=== PATIENT | female | born 1960 | race African-American/Black ===

== ENCOUNTER → 2019-08-16 | Day surgery (SDC) | payer OTHER ==
[~2019-08-16] MED LIST: ALLOPURINOL300 MG PO; ANASTROZOLE1 MG PO; ATORVASTATIN CA10 MG PO; BASAGLAR K100 UNIT/1 SC; COLCRYS0.6 MG PO; DUPIXENT300 MG/2 M INJ; ELIQUIS5 MG PO; FENTANYL CITRATE/PF 100MCG/2 ML INJ ONE; GABAPENTIN300 MG PO; HYDRALAZINE HCL25 MG PO; LOSARTAN-HCTZ1 EAC2 PO; METFORMIN HCL500 MG PO; MIDAZOLAM HCL 2 MG/2 ML VIAL ONE; NOVOLOG100 UNIT/1 SC; PROPOFOL IV EMULSION 10 MG/ML 50 ML VIAL ONE; SYNTHROID125 MCG PO
--- OUTSIDE RECORDS SUMMARY | 2019-08-16 11:21 | XMS REPORT | Summary of Care ---
Author Author DARREN AMOR M.D. Organization Unknown Address Unknown Phone Unavailable Care Team Providers Care Test Clerk Name Role Phone DARREN AMOR M.D. Unavailable Unavailable Unavailable Unavailable Functional Status Name Dates Details Functional status health issues are not documented Status: Name Dates Details Cognitive status health issues are not documented Status: Problems Name Dates Details Knee pain, bilateral (719.46, M25.561) Status: Active Follow up (V67.9, Z09) Status: Active Lumbar pain (724.2, M54.5) Status: Active DJD (degenerative joint disease), lumbar (721.3, M47.816) Status: Active Primary osteoarthritis of both knees (715.16, M17.0) Status: Active Medications Name Dates Details Pennsaid 2 % Transdermal Solution APPLY 2 PUMPS TOPICALLY TO AFFECTED AREA(S) 2 TIMES DAILY Quantity: 112 DARREN AMOR M.D. Start : 23-Jul-2017 Active Meloxicam 7.5 MG Oral Tablet TAKE 1 TABLET BY MOUTH DAILY TAKE WITH FOOD * Quantity: 30 Refills: 0 DARREN AMOR M.D. * Start : 01-Feb-2018 Active Diclofenac Sodium 1 % Transdermal Gel APPLY TO LOWER EXTREMITIES, 4 GM OF GEL TO AFFECTED AREA 4 TIMES DAILY. DO NOT APPLY MORE THAN 16 GM DAILY TO ANY ONE AFFECTED JOINT. * Quantity: 5 Refills: 0 DARREN AMOR M.D. Start : 04-Sep-2017 Active 100 GM Tube Meloxicam 7.5 MG Oral Tablet TAKE 1 TABLET BY MOUTH DAILY TAKE WITH FOOD * Quantity: 30 Refills: 0 DARREN AMOR M.D. Start : 23-Oct-2017 Active Meloxicam 15 MG Oral Tablet TAKE ONE TABLET BY MOUTH DAILY WITH A MEAL. * Quantity: 30 Refills: 3 DARREN AMOR M.D. Start : 17-Feb-2018 Active Allergies and Adverse Reactions Name Dates Details Bactrim DS TABS (Allergy) Status: Active Iodine ANA LAURA (Allergy) Status: Active Naproxen Comfort Pac KIT (Allergy) Status: Active Past Medical History Name Dates Details History of Depressive disorder (311, F32.9) Status: Resolved History of Essential hypertension, benign (401.1, I10) Status: Resolved History of heartburn (V12.79, Z87.898) Status: Resolved History of hypothyroidism (V12.29, Z86.39) Status: Resolved History of Pure hypercholesterolemia (272.0, E78.00) Status: Resolved History of sleep apnea (V13.89, Z86.69) Status: Resolved Procedures Procedure Dates Details Procedures not documented Immunization Name Dates Details Immunizations not documented Social History Name Dates Details Unknown if ever smoked Vital Signs Date Test Result Details No Known Vitals to report Results Date Description Value Details Results not documented Plan of Care Name Dates Details Planned Observations Planned Goals not documented Planned Encounters Appointment; DARREN AMOR M.D. On: 09-Jul-2018 11:30 Interventions Provided Plan* Completed at Today's Appointment: * Injection * Patient Education/Instructions: * Patient Education Provided * Reassurance * Counseling Provided. * NSAIDS and ICE application for continued pain and swelling. * Orders: * Medications: * Medications (prescribed or recommended at this visit): * - Mobic 15 mg 1 tab PO QD with meals. * Follow Up: * Return to the clinic in 6 weeks or as needed. * Weight loss Instructions Name Dates Details Instructions not documented Encounters Appointment; DARREN AMOR M.D. Encounter Diagnosis: Problem not documented On: 19-Feb-2017 13:45 Appointment; DARREN AMOR M.D. Encounter Diagnosis: Problem not documented On: 20-Apr-2017 9:45 Appointment; DARREN AMOR M.D. Encounter Diagnosis: Problem not documented On: 22-Jun-2017 9:00 Appointment; DARREN AMOR M.D. Encounter Diagnosis: Problem not documented On: 01-Jul-2017 9:00 Appointment; DARREN AMOR M.D. Encounter Diagnosis: Problem not documented On: 06-Jul-2017 9:15 Appointment; DARREN AMOR M.D. Encounter Diagnosis: Problem not documented On: 04-Sep-2017 11:30 Appointment; DARREN AMOR M.D. Encounter Diagnosis: Problem not documented On: 23-Oct-2017 11:30 Appointment; DARREN AMOR M.D. Encounter Diagnosis: Problem not documented On: 17-Feb-2018 13:30 Appointment; DARREN AMOR M.D. Encounter Diagnosis: Problem not documented On: 21-May-2018 13:30
--- OUTSIDE RECORDS SUMMARY | 2019-08-16 11:21 | XMS REPORT ---
Author Author [facility] Address Unknown Phone Unavailable Care Team Providers Care Branch Banker Name Role Phone CARLIE MACHADO Unavailable Unavailable MAMIE GUERRERO Unavailable Unavailable RALPH HARRISON Unavailable Unavailable Problems This patient has no known problems. Allergies, Adverse Reactions, Alerts This patient has no known allergies or adverse reactions. Medications This patient has no known medications. Encounters Start Date/Time End Date/Time Encounter Type Admission Type Attending [facility] Facility Care Department Encounter ID 2019-06-21 17:58:00 Inpatient [facility] [id number] 2019-07-07 00:12:00 2019-07-07 00:12:00 Emergency E [facility] [id number] 2019-02-14 07:23:00 2019-02-14 07:23:00 [id number] 2019-01-14 07:15:00 2019-01-14 07:15:00 [id number] 2017-02-28 20:00:00 2017-02-28 23:59:00 Outpatient [facility] [id number] 2017-02-07 20:00:00 2017-02-07 23:59:00 Outpatient [facility] [id number] Results Test Description Test Time Test Comments Text Results Atomic Results Result Comments HGB/HCT (H&H) - STAT LAB 2017-12-31 14:49:00 HEMOGLOBIN (BEAKER) (test kpia=913) 13.0 g/dL 12.0-15.0 HEMATOCRIT (BEAKER) (test uhrf=121) 38.0 % 36.0-45.0 BLOOD GAS, [id number] 14:44:00* Test Item Value Reference Range Comments PH ARTERIAL (BEAKER) (test rgms=011) 7.47 7.35-7.45 PCO2 ARTERIAL (BEAKER) (test vqeh=661) 41 mmHg 35-45 PO2 ARTERIAL (BEAKER) (test qdbp=233) 93 mmHg 80-90 O2 SATURATION ARTERIAL (BEAKER) (test zrii=934) 97.5 % 96.0-97.0 HCO3 ARTERIAL (BEAKER) (test yydb=920) 29 mmol/L 21-29 BASE EXCESS ARTERIAL (BEAKER) (test zhvh=106) 5.2 mmol/L -2.0-3.0 PATIENT TEMPERATURE (BEAKER) (test kgkc=1556) 37.0 C FIO2 (BEAKER) (test zllf=1121) 21.0 % POCT-GLUCOSE [id number] 12:24:00* Test Item Value Reference Range Comments POC-GLUCOSE METER (BEAKER) (test ubsz=0153) 282 mg/dL 70-110 TESTED AT [place] [id number] [facility] [address] POCT-GLUCOSE [id number] 08:12:00* Test Item Value Reference Range Comments POC-GLUCOSE METER (BEAKER) (test vicq=8040) 229 mg/dL 70-110 TESTED AT [place] [id number] [facility] [address] [id number] 06:10:00* Test Item Value Reference Range Comments FERRITIN (BEAKER) (test ntdm=629) 47 ng/mL 5-275 TSH/FREE T4 IF [id number] 06:10:00* Test Item Value Reference Range Comments THYROID STIMULATING HORMONE (BEAKER) (test bpab=824) 3.52 uIU/mL 0.35-4.94 IRON, TIBC, % SAT. (WITHOUT FERRITIN)2017-08-21 05:52:00* Test Item Value Reference Range Comments IRON (BEAKER) (test thwq=990) 60 ug/dL 40-160 TOTAL IRON BINDING CAPACITY (BEAKER) (test hggb=840) 285 ug/dL 250-450 IRON % SATURATION (2) (BEAKER) (test hzfn=4285) 21 % 20-55 BASIC METABOLIC [id number] 05:22:00* Test Item Value Reference Range Comments SODIUM (BEAKER) (test ttuc=787) 136 meq/L 136-145 POTASSIUM (BEAKER) (test uqlf=518) 4.1 meq/L 3.5-5.1 CHLORIDE (BEAKER) (test eapf=442) 102 meq/L 98-107 CO2 (BEAKER) (test kvwo=279) 26 meq/L 22-29 BLOOD UREA NITROGEN (BEAKER) (test dbee=575) 10 mg/dL 7-21 CREATININE (BEAKER) (test kwoi=867) 0.97 mg/dL 0.57-1.25 GLUCOSE RANDOM (BEAKER) (test zuqw=433) 154 mg/dL 70-105 CALCIUM (BEAKER) (test jsuv=835) 8.7 mg/dL 8.4-10.2 EGFR (BEAKER) (test mvtl=4882) 71 mL/min/1.73 sq m ESTIMATED GFR IS NOT ACCURATE CREATININE CLEARANCE IN PREDICTING GLOMERULAR FILTRATION RATE. ESTIMATED GFR IS NOT APPLICABLE FOR DIALYSIS PATIENTS. CBC (HEMOGRAM ONLY)2017-08-21 04:28:00* Test Item Value Reference Range Comments WHITE BLOOD CELL COUNT (BEAKER) (test rcvs=117) 9.2 K/ L 3.5-10.5 RED BLOOD CELL COUNT (BEAKER) (test brcj=961) 3.33 M/ L 3.93-5.22 HEMOGLOBIN (BEAKER) (test xcch=736) 10.1 GM/DL 11.2-15.7 HEMATOCRIT (BEAKER) (test zofa=838) 31.3 % 34.1-44.9 MEAN CORPUSCULAR VOLUME (BEAKER) (test rmon=910) 94.0 fL 79.4-94.8 MEAN CORPUSCULAR HEMOGLOBIN (BEAKER) (test tawx=958) 30.3 pg 25.6-32.2 MEAN CORPUSCULAR HEMOGLOBIN CONC (BEAKER) (test iboh=447) 32.3 GM/DL 32.2-35.5 RED CELL DISTRIBUTION WIDTH (BEAKER) (test oxpj=127) 15.1 % 11.7-14.4 PLATELET COUNT (BEAKER) (test ygjk=867) 287 K/CU MM 150-450 MEAN PLATELET VOLUME (BEAKER) (test jtnd=181) 10.3 fL 9.4-12.3 NUCLEATED RED BLOOD CELLS (BEAKER) (test etmy=445) 0 /100 WBC 0-0 BASIC METABOLIC [id number] 19:35:00* Test Item Value Reference Range Comments SODIUM (BEAKER) (test tuip=961) 136 meq/L 136-145 POTASSIUM (BEAKER) (test rtuz=542) 4.0 meq/L 3.5-5.1 CHLORIDE (BEAKER) (test kqng=736) 101 meq/L 98-107 CO2 (BEAKER) (test gmtb=487) 25 meq/L 22-29 BLOOD UREA NITROGEN (BEAKER) (test jgjz=835) 12 mg/dL 7-21 CREATININE (BEAKER) (test vujv=234) 0.96 mg/dL 0.57-1.25 GLUCOSE RANDOM (BEAKER) (test wfil=975) 186 mg/dL 70-105 CALCIUM (BEAKER) (test bojm=666) 8.6 mg/dL 8.4-10.2 EGFR (BEAKER) (test qqqj=3868) 72 mL/min/1.73 sq m ESTIMATED GFR IS NOT ACCURATE CREATININE CLEARANCE IN PREDICTING GLOMERULAR FILTRATION RATE. ESTIMATED GFR IS NOT APPLICABLE FOR DIALYSIS PATIENTS. POCT-GLUCOSE [id number] 18:20:00* Test Item Value Reference Range Comments POC-GLUCOSE METER (BEAKER) (test ibsk=6233) 217 mg/dL 70-110 TESTED AT [place] [address] BASIC METABOLIC [id number] 11:47:00* Test Item Value Reference Range Comments SODIUM (BEAKER) (test azka=488) 135 meq/L 136-145 POTASSIUM (BEAKER) (test gern=999) 4.0 meq/L 3.5-5.1 CHLORIDE (BEAKER) (test rchi=344) 99 meq/L 98-107 CO2 (BEAKER) (test rdij=184) 26 meq/L 22-29 BLOOD UREA NITROGEN (BEAKER) (test sugn=963) 15 mg/dL 7-21 CREATININE (BEAKER) (test jjdl=996) 1.07 mg/dL 0.57-1.25 GLUCOSE RANDOM (BEAKER) (test qbrc=236) 205 mg/dL 70-105 CALCIUM (BEAKER) (test vnvm=701) 9.3 mg/dL 8.4-10.2 EGFR (BEAKER) (test onrd=6795) 64 mL/min/1.73 sq m ESTIMATED GFR IS NOT ACCURATE CREATININE CLEARANCE IN PREDICTING GLOMERULAR FILTRATION RATE. ESTIMATED GFR IS NOT APPLICABLE FOR DIALYSIS PATIENTS. CBC W/PLT COUNT & AUTO [id number] 11:30:00* Test Item Value Reference Range Comments WHITE BLOOD CELL COUNT (BEAKER) (test emei=772) 8.4 K/ L 3.5-10.5 RED BLOOD CELL COUNT (BEAKER) (test gqrl=137) 3.52 M/ L 3.93-5.22 HEMOGLOBIN (BEAKER) (test dquh=781) 10.7 GM/DL 11.2-15.7 HEMATOCRIT (BEAKER) (test okgk=550) 32.8 % 34.1-44.9 MEAN CORPUSCULAR VOLUME (BEAKER) (test ncnr=127) 93.2 fL 79.4-94.8 MEAN CORPUSCULAR HEMOGLOBIN (BEAKER) (test fpxx=439) 30.4 pg 25.6-32.2 MEAN CORPUSCULAR HEMOGLOBIN CONC (BEAKER) (test jemm=371) 32.6 GM/DL 32.2-35.5 RED CELL DISTRIBUTION WIDTH (BEAKER) (test vgka=327) 15.1 % 11.7-14.4 PLATELET COUNT (BEAKER) (test noau=561) 322 K/CU MM 150-450 MEAN PLATELET VOLUME (BEAKER) (test cvfm=262) 9.9 fL 9.4-12.3 NUCLEATED RED BLOOD CELLS (BEAKER) (test otvq=511) 0 /100 WBC 0-0 NEUTROPHILS RELATIVE PERCENT (BEAKER) (test khdt=814) 54 % LYMPHOCYTES RELATIVE PERCENT (BEAKER) (test wkac=668) 29 % MONOCYTES RELATIVE PERCENT (BEAKER) (test nkql=593) 7 % EOSINOPHILS RELATIVE PERCENT (BEAKER) (test pfww=896) 9 % BASOPHILS RELATIVE PERCENT (BEAKER) (test pbpr=662) 1 % NEUTROPHILS ABSOLUTE COUNT (BEAKER) (test hzkw=450) 4.55 K/ L 1.56-6.13 LYMPHOCYTES ABSOLUTE COUNT (BEAKER) (test liul=174) 2.42 K/ L 1.18-3.74 MONOCYTES ABSOLUTE COUNT (BEAKER) (test jyrp=933) 0.55 K/ L 0.24-0.36 EOSINOPHILS ABSOLUTE COUNT (BEAKER) (test qxyi=897) 0.72 K/ L 0.04-0.36 BASOPHILS ABSOLUTE COUNT (BEAKER) (test kpgu=807) 0.07 K/ L 0.01-0.08 IMMATURE GRANULOCYTES-RELATIVE PERCENT (BEAKER) (test nxyv=2387) 1 % 0-1
[2019-08-16 15:50] VITALS: BP 129/89
== END | disposition home or self-care (01) ==
LOC: OR 11:16
PROVIDERS: ATTEND Internal Medicine Gastroenterology
DX: Z12.11 Encounter for screening for malignant neoplasm of colon (principal); D12.3 Benign neoplasm of transverse colon; D12.4 Benign neoplasm of descending colon; D12.5 Benign neoplasm of sigmoid colon; D12.8 Benign neoplasm of rectum; K31.7 Polyp of stomach and duodenum; K29.50 Unspecified chronic gastritis without bleeding; K31.89 Other diseases of stomach and duodenum; K21.9 Gastro-esophageal reflux disease without esophagitis; K59.00 Constipation, unspecified; K20.9 Esophagitis, unspecified; K64.8 Other hemorrhoids; K63.9 Disease of intestine, unspecified; K57.30 Diverticulosis of large intestine without perforation or abscess without bleeding; K44.9 Diaphragmatic hernia without obstruction or gangrene; E11.9 Type 2 diabetes mellitus without complications; I10 Essential (primary) hypertension; E78.5 Hyperlipidemia, unspecified; E03.9 Hypothyroidism, unspecified; R07.9 Chest pain, unspecified; M10.9 Gout, unspecified; G62.9 Polyneuropathy, unspecified; G47.33 Obstructive sleep apnea (adult) (pediatric); Z88.1 Allergy status to other antibiotic agents; Z88.8 Allergy status to other drugs, medicaments and biological substances; Z99.81 Dependence on supplemental oxygen; Z79.4 Long term (current) use of insulin; Z79.02 Long term (current) use of antithrombotics/antiplatelets; Z68.42 Body mass index [BMI] 45.0-49.9, adult; Z85.3 Personal history of malignant neoplasm of breast; Z86.718 Personal history of other venous thrombosis and embolism; Z80.0 Family history of malignant neoplasm of digestive organs
CPT/HCPCS: 36415; 43239; 45380; 45384; 45385; 82948; J2250; J2704; J3010; 44391; 45378

== ENCOUNTER → 2020-08-21 | Day surgery (SDC) | payer OTHER ==
[~2020-08-21] MED LIST changes: +LIDOCAINE HCL 2% LOCAL INJ 5 ML SDV VIAL INJ ONE; +PHENYLEPHRINE HCL 1% 10 MG/ML VIAL ONE; +PROPOFOL IV EMULSION 10 MG/ML 20 ML VIAL ONE; -PROPOFOL IV EMULSION 10 MG/ML 50 ML VIAL ONE; +SPIRONOLACTONE1 GM; +TAMOXIFEN CITRA10 MG PO
[2020-08-21 10:35] VITALS: BP 114/77
== END | disposition home or self-care (01) ==
LOC: OR 07:04
PROVIDERS: ATTEND Internal Medicine Gastroenterology
DX: Z12.11 Encounter for screening for malignant neoplasm of colon (principal); D12.4 Benign neoplasm of descending colon; D12.5 Benign neoplasm of sigmoid colon; D12.8 Benign neoplasm of rectum; K57.30 Diverticulosis of large intestine without perforation or abscess without bleeding; K64.8 Other hemorrhoids; K21.9 Gastro-esophageal reflux disease without esophagitis; K31.89 Other diseases of stomach and duodenum; R13.10 Dysphagia, unspecified; K30 Functional dyspepsia; E73.9 Lactose intolerance, unspecified; K59.09 Other constipation; R07.9 Chest pain, unspecified; G47.33 Obstructive sleep apnea (adult) (pediatric); I10 Essential (primary) hypertension; E11.9 Type 2 diabetes mellitus without complications; E66.01 Morbid (severe) obesity due to excess calories; Z88.1 Allergy status to other antibiotic agents; Z88.2 Allergy status to sulfonamides; Z88.8 Allergy status to other drugs, medicaments and biological substances; Z01.810 Encounter for preprocedural cardiovascular examination; Z01.812 Encounter for preprocedural laboratory examination; Z20.828 Contact with and (suspected) exposure to other viral communicable diseases; Z79.4 Long term (current) use of insulin; Z85.3 Personal history of malignant neoplasm of breast
CPT/HCPCS: 36415; 45384; 45385; 82948; 93005; J2001; J2370; J2704; U0002; 45378; J2250; J3010

== ENCOUNTER → 2021-08-06 | Day surgery (SDC) | payer BC, OTHER ==
[~2021-08-06] MED LIST changes: -FENTANYL CITRATE/PF 100MCG/2 ML INJ ONE; +GLYCOPYRROLATE INJ 0.2 MG/ML VIAL ONE; +METOPROLOL TART50 MG PO; -MIDAZOLAM HCL 2 MG/2 ML VIAL ONE; -PHENYLEPHRINE HCL 1% 10 MG/ML VIAL ONE; +POVIDONE IODINE 0.05% 0.05 % ML PO ONE; +RALOXIFENE HCL60 MG PO
[2021-08-06 10:55] VITALS: BP 119/79
== END | disposition home or self-care (01) ==
LOC: OR 07:33
PROVIDERS: ATTEND Internal Medicine Gastroenterology
DX: K31.89 Other diseases of stomach and duodenum (principal); D12.2 Benign neoplasm of ascending colon; D12.4 Benign neoplasm of descending colon; K31.7 Polyp of stomach and duodenum; K29.50 Unspecified chronic gastritis without bleeding; R13.10 Dysphagia, unspecified; K21.9 Gastro-esophageal reflux disease without esophagitis; K44.9 Diaphragmatic hernia without obstruction or gangrene; K59.09 Other constipation; K57.30 Diverticulosis of large intestine without perforation or abscess without bleeding; K64.8 Other hemorrhoids; E73.9 Lactose intolerance, unspecified; G47.33 Obstructive sleep apnea (adult) (pediatric); D64.9 Anemia, unspecified; I10 Essential (primary) hypertension; E11.9 Type 2 diabetes mellitus without complications; E78.5 Hyperlipidemia, unspecified; E03.9 Hypothyroidism, unspecified; E66.01 Morbid (severe) obesity due to excess calories; F32.A Depression, unspecified; Z88.1 Allergy status to other antibiotic agents; Z88.2 Allergy status to sulfonamides; Z88.8 Allergy status to other drugs, medicaments and biological substances; Z01.810 Encounter for preprocedural cardiovascular examination; Z01.812 Encounter for preprocedural laboratory examination; Z20.822 Contact with and (suspected) exposure to COVID-19; Z79.4 Long term (current) use of insulin; Z99.81 Dependence on supplemental oxygen; Z79.02 Long term (current) use of antithrombotics/antiplatelets; Z68.42 Body mass index [BMI] 45.0-49.9, adult; Z86.718 Personal history of other venous thrombosis and embolism; Z85.3 Personal history of malignant neoplasm of breast; Z92.3 Personal history of irradiation
CPT/HCPCS: 36415; 43239; 43251; 45384; 45385; 82948; 93005; J2001; J2704; U0002; 45378

== ENCOUNTER → 2021-10-22 | Day surgery (SDC) | payer BC ==
[2021-10-21 11:14] LABS: BASOPHILS # (AUTO) 0.1 (0.0-0.1); BASOPHILS % 0.7 % (0.0-1.0); EOSINOPHILS # (AUTO) 0.4 (0.0-0.4); EOSINOPHILS % 4.9 % (0.0-6.0); HEMATOCRIT 35.8 % (34.2-44.1); LYMPHOCYTES # (AUTO) 2.7 (1.0-3.2); LYMPHOCYTES % 36.1 % (18.0-39.1); MEAN CORPUSCULAR HEMOGLOBIN 26.6 pg (28-32); MEAN CORPUSCULAR HGB CONC 30.7 g/dL (31-35); MEAN CORPUSCULAR VOLUME 86.7 fL (81-99); MONOCYTES # (AUTO) 0.6 (0.2-0.8); MONOCYTES % 8.4 % (4.4-11.3); NEUTROPHILS # (AUTO) 3.7 (2.1-6.9); NEUTROPHILS % 49.5 % (38.7-80.0); PLATELET COUNT 341 x10e3/uL (140-360); RED BLOOD COUNT 4.13 x10e6/uL (3.6-5.1); RED CELL DISTRIBUTION WIDTH 16.4 % (11.7-14.4)
[~2021-10-22] MED LIST changes: -GLYCOPYRROLATE INJ 0.2 MG/ML VIAL ONE; +HYDRALAZINE HCL10 MG PO; +HYDROCHLOROTHIA25 MG PO; +OZEMPIC0.25 MG/0. SC; -POVIDONE IODINE 0.05% 0.05 % ML PO ONE; +XIGDUO XR 10 M1 EAC1
[2021-10-22 11:05] VITALS: BP 134/84
== END | disposition home or self-care (01) ==
LOC: OR 09:21
PROVIDERS: ATTEND Internal Medicine Gastroenterology
DX: K31.7 Polyp of stomach and duodenum (principal); K29.70 Gastritis, unspecified, without bleeding; R13.10 Dysphagia, unspecified; K44.9 Diaphragmatic hernia without obstruction or gangrene; K31.89 Other diseases of stomach and duodenum; K21.9 Gastro-esophageal reflux disease without esophagitis; K59.09 Other constipation; K57.90 Diverticulosis of intestine, part unspecified, without perforation or abscess without bleeding; K64.8 Other hemorrhoids; E73.9 Lactose intolerance, unspecified; D64.9 Anemia, unspecified; R70.0 Elevated erythrocyte sedimentation rate; G47.33 Obstructive sleep apnea (adult) (pediatric); J45.909 Unspecified asthma, uncomplicated; E11.9 Type 2 diabetes mellitus without complications; I10 Essential (primary) hypertension; E78.5 Hyperlipidemia, unspecified; E03.9 Hypothyroidism, unspecified; Z88.1 Allergy status to other antibiotic agents; Z88.8 Allergy status to other drugs, medicaments and biological substances; Z01.810 Encounter for preprocedural cardiovascular examination; Z01.812 Encounter for preprocedural laboratory examination; Z20.822 Contact with and (suspected) exposure to COVID-19; Z99.81 Dependence on supplemental oxygen; Z79.02 Long term (current) use of antithrombotics/antiplatelets; Z79.4 Long term (current) use of insulin; Z79.899 Other long term (current) drug therapy; Z68.42 Body mass index [BMI] 45.0-49.9, adult; Z85.3 Personal history of malignant neoplasm of breast; Z86.711 Personal history of pulmonary embolism; Z87.891 Personal history of nicotine dependence; Z80.0 Family history of malignant neoplasm of digestive organs
CPT/HCPCS: 36415 ×2; 43235; 82948; 85025; 93005; J2001; J2704; U0002

== ENCOUNTER → 2021-11-12 | Day surgery (SDC) | payer BC ==
[~2021-11-12] MED LIST changes: +CYMBALTA30 MG PO; +DICYCLOMINE HCL20 MG PO; +PANTOPRAZOLE SO40 MG PO; -XIGDUO XR 10 M1 EAC1; +XIGDUO XR 10 M1 EAC1 PO
[2021-11-12 11:45] VITALS: BP 101/65
== END | disposition home or self-care (01) ==
LOC: OR 08:57
PROVIDERS: ATTEND Internal Medicine Gastroenterology
DX: K31.7 Polyp of stomach and duodenum (principal); K44.9 Diaphragmatic hernia without obstruction or gangrene; K31.A0 Gastric intestinal metaplasia, unspecified; K29.70 Gastritis, unspecified, without bleeding; K59.09 Other constipation; R13.10 Dysphagia, unspecified; Z86.010 Personal history of colon polyps; K57.90 Diverticulosis of intestine, part unspecified, without perforation or abscess without bleeding; K64.8 Other hemorrhoids; G47.33 Obstructive sleep apnea (adult) (pediatric); D64.9 Anemia, unspecified; E73.9 Lactose intolerance, unspecified; R70.0 Elevated erythrocyte sedimentation rate; E11.9 Type 2 diabetes mellitus without complications; I10 Essential (primary) hypertension; E78.5 Hyperlipidemia, unspecified; E03.9 Hypothyroidism, unspecified; Z88.1 Allergy status to other antibiotic agents; Z88.2 Allergy status to sulfonamides; Z88.8 Allergy status to other drugs, medicaments and biological substances; Z01.812 Encounter for preprocedural laboratory examination; Z20.822 Contact with and (suspected) exposure to COVID-19; Z99.81 Dependence on supplemental oxygen; Z79.02 Long term (current) use of antithrombotics/antiplatelets; Z79.4 Long term (current) use of insulin; Z79.899 Other long term (current) drug therapy; Z68.42 Body mass index [BMI] 45.0-49.9, adult; Z86.711 Personal history of pulmonary embolism; Z85.3 Personal history of malignant neoplasm of breast; Z92.3 Personal history of irradiation; Z80.0 Family history of malignant neoplasm of digestive organs
CPT/HCPCS: 36415; 43239; 43251; 82948; J2001; J2704; U0002

== ENCOUNTER → 2021-12-10 | Day surgery (SDC) | payer BC ==
[2021-12-06 11:23] LABS: BASOPHILS # (AUTO) 0.1 (0.0-0.1); BASOPHILS % 0.7 % (0.0-1.0); EOSINOPHILS # (AUTO) 0.3 (0.0-0.4); EOSINOPHILS % 4.2 % (0.0-6.0); HEMATOCRIT 33.8 % (34.2-44.1); HEMOGLOBIN 10.6 g/dL (12.0-16.0); LYMPHOCYTES # (AUTO) 2.3 (1.0-3.2); LYMPHOCYTES % 29.7 % (18.0-39.1); MEAN CORPUSCULAR HEMOGLOBIN 27.3 pg (28-32); MEAN CORPUSCULAR HGB CONC 31.4 g/dL (31-35); MEAN CORPUSCULAR VOLUME 87.1 fL (81-99); MONOCYTES # (AUTO) 0.5 (0.2-0.8); MONOCYTES % 6.2 % (4.4-11.3); NEUTROPHILS # (AUTO) 4.5 (2.1-6.9); NEUTROPHILS % 58.5 % (38.7-80.0); PLATELET COUNT 354 x10e3/uL (140-360); RED BLOOD COUNT 3.88 x10e6/uL (3.6-5.1); RED CELL DISTRIBUTION WIDTH 16.4 % (11.7-14.4)
[~2021-12-10] MED LIST changes: +FENTANYL CITRATE/PF 100MCG/2 ML INJ ONE; +HYDROXYZIN10 MG/5 ML PO; +MIDAZOLAM HCL 2 MG/2 ML VIAL ONE; +TRESIBA100 UNIT/1 SQ; +TRULANCE3 MG PO; +ULTRAM 50MG50 MG PO
[2021-12-10 13:05] VITALS: BP 123/74
== END | disposition home or self-care (01) ==
LOC: OR 10:38
PROVIDERS: ATTEND Internal Medicine Gastroenterology
DX: K31.7 Polyp of stomach and duodenum (principal); K29.50 Unspecified chronic gastritis without bleeding; K21.00 Gastro-esophageal reflux disease with esophagitis, without bleeding; K31.89 Other diseases of stomach and duodenum; K30 Functional dyspepsia; R13.10 Dysphagia, unspecified; K44.9 Diaphragmatic hernia without obstruction or gangrene; K57.90 Diverticulosis of intestine, part unspecified, without perforation or abscess without bleeding; K59.09 Other constipation; E73.9 Lactose intolerance, unspecified; D64.9 Anemia, unspecified; G47.33 Obstructive sleep apnea (adult) (pediatric); E11.9 Type 2 diabetes mellitus without complications; I10 Essential (primary) hypertension; E78.5 Hyperlipidemia, unspecified; M10.9 Gout, unspecified; G62.9 Polyneuropathy, unspecified; E03.9 Hypothyroidism, unspecified; F32.A Depression, unspecified; M19.90 Unspecified osteoarthritis, unspecified site; Z01.812 Encounter for preprocedural laboratory examination; Z20.822 Contact with and (suspected) exposure to COVID-19; Z79.02 Long term (current) use of antithrombotics/antiplatelets; Z79.4 Long term (current) use of insulin; Z99.81 Dependence on supplemental oxygen; Z79.899 Other long term (current) drug therapy; Z68.42 Body mass index [BMI] 45.0-49.9, adult; Z86.711 Personal history of pulmonary embolism; Z85.3 Personal history of malignant neoplasm of breast; Z92.3 Personal history of irradiation; Z80.0 Family history of malignant neoplasm of digestive organs
CPT/HCPCS: 36415 ×2; 43239; 82948; 85025; J2001; J2250; J2704; J3010; U0002

== ENCOUNTER 2023-01-19 11:53 | Inpatient (IN) | payer BC ==
[~2023-01-19] VITALS: Ht 162.6 cm; Wt 113.9 kg
[~2023-01-19 11:53] MED LIST changes: -FENTANYL CITRATE/PF 100MCG/2 ML INJ ONE; -LIDOCAINE HCL 2% LOCAL INJ 5 ML SDV VIAL INJ ONE; -MIDAZOLAM HCL 2 MG/2 ML VIAL ONE; -PROPOFOL IV EMULSION 10 MG/ML 20 ML VIAL ONE
[2023-01-19] MEDS ORDERED: ONDANSETRON HCL INJ 2MG/ML 2ML 2 MG/ML VIAL IV STA (12:19)
[2023-01-19] MEDS ORDERED: DICYCLOMINE HCL 20 MG TAB PO ONE (12:30)
[2023-01-19] MEDS ORDERED: SODIUM CHLORIDE 0.9% 1000ML 1,000 ML IV ONE ×2 (12:30→16:00)
[2023-01-19 12:56] LABS: BASOPHILS % 0.1 % (0.0-1.0); EOSINOPHILS # (AUTO) 0.1 (0.0-0.4); EOSINOPHILS % 1.4 % (0.0-6.0); HEMATOCRIT 36.8 % (34.2-44.1); HEMOGLOBIN 11.8 g/dL (12.0-16.0); LYMPHOCYTES # (AUTO) 0.9 (1.0-3.2); LYMPHOCYTES % 9.4 % (18.0-39.1); MEAN CORPUSCULAR HEMOGLOBIN 28.2 pg (28-32); MEAN CORPUSCULAR HGB CONC 32.1 g/dL (31-35); MEAN CORPUSCULAR VOLUME 87.8 fL (81-99); MONOCYTES # (AUTO) 0.4 (0.2-0.8); MONOCYTES % 4.2 % (4.4-11.3); NEUTROPHILS # (AUTO) 8.5 (2.1-6.9); NEUTROPHILS % 84.5 % (38.7-80.0); PLATELET COUNT 413 x10e3/uL (140-360); RED BLOOD COUNT 4.19 x10e6/uL (3.6-5.1); RED CELL DISTRIBUTION WIDTH 19.3 % (11.7-14.4)
[2023-01-19 13:16] LABS: LIPASE 67 U/L (8-78)
[2023-01-19 14:14] LABS: ALBUMIN 3.7 g/dL (3.5-5.0); ANION GAP 19.4 mmol/L (8-16); CALCIUM 8.8 mg/dL (8.4-10.2); CREATININE, SERUM 1.05 mg/dL (0.57-1.11); POTASSIUM 3.4 mmol/L (3.5-5.1)
[2023-01-19] MEDS ORDERED: IOPAMIDOL 370 MG/ML 100 ML INFUS..BTL INJ ONE (14:37)
[2023-01-19] MEDS ORDERED: ACETAMINOPHEN 325 MG TAB PO ONE (16:00)
[2023-01-19 17:39] LABS: CLARITY,URINE CLOUDY (CLEAR); COLOR,URINE YELLOW (YELLOW); KETONES,URINE TRACE (NEGATIVE); LEUKOCYTE ESTERASE ,URINE NEGATIVE (NEGATIVE); NITRITE,URINE NEGATIVE (NEGATIVE); PROTEIN,URINE DIPSTICK 2+ (NEGATIVE); URINE UROBILINOGEN 1 mg/dL (0.2 - 1)
[2023-01-19 17:45] LABS: BACTERIA,URINE MANY /HPF; EPITHELIAL CELLS,URINE MANY /LPF
[2023-01-19] MEDS ORDERED: ONDANSETRON HCL INJ 2MG/ML 2ML 2 MG/ML VIAL IV PRN ×2 (18:45→22:00)
[2023-01-19] MEDS: SODIUM CHLORIDE 0.9% 1000ML 1,000 ML IV SCH (20:55)
[2023-01-19] MEDS ORDERED: HYDRALAZINE HCL 20 MG/ML VIAL IV PRN (22:00)
[2023-01-19] MEDS: DICYCLOMINE HCL 10 MG CAP PO PRN (22:42)
[2023-01-19 22:54] LABS: % IRON SATURATION 15 % (15-50); IRON 65 ug/dL (50-170); TOTAL IRON BINDING CAPACITY 428 ug/dL (261-478); TRANSFERRIN 306 mg/dL (180-382)
[2023-01-20] MEDS: SODIUM CHLORIDE 0.9% 1000ML 1,000 ML IV SCH (03:46)
[2023-01-20] MEDS: ACETAMINOPHEN 325 MG TAB PO PRN ×2 (03:47→11:01)
[2023-01-20] MEDS ORDERED: METRONIDAZOLE 500MG/NS 100ML 100 ML IV SCH ×2 (06:00→22:00)
[2023-01-20 06:17] LABS: BASOPHILS % 0.4 % (0.0-1.0); EOSINOPHILS # (AUTO) 0.2 (0.0-0.4); EOSINOPHILS % 3.6 % (0.0-6.0); HEMATOCRIT 29.2 % (34.2-44.1); HEMOGLOBIN 9.1 g/dL (12.0-16.0); LYMPHOCYTES # (AUTO) 1.4 (1.0-3.2); LYMPHOCYTES % 25.8 % (18.0-39.1); MEAN CORPUSCULAR HEMOGLOBIN 27.5 pg (28-32); MEAN CORPUSCULAR HGB CONC 31.2 g/dL (31-35); MEAN CORPUSCULAR VOLUME 88.2 fL (81-99); MONOCYTES # (AUTO) 0.3 (0.2-0.8); MONOCYTES % 6.1 % (4.4-11.3); NEUTROPHILS # (AUTO) 3.4 (2.1-6.9); NEUTROPHILS % 63.7 % (38.7-80.0); PLATELET COUNT 265 x10e3/uL (140-360); RED BLOOD COUNT 3.31 x10e6/uL (3.6-5.1); RED CELL DISTRIBUTION WIDTH 17.6 % (11.7-14.4)
[2023-01-20 06:40] LABS: ANION GAP 13.6 mmol/L (8-16); CALCIUM 7.8 mg/dL (8.4-10.2); CREATININE, SERUM 0.86 mg/dL (0.57-1.11)
[2023-01-20 06:49] LABS: POTASSIUM 2.6 mmol/L (3.5-5.1)
[2023-01-20 06:56] LABS: CHOL/HDL RATIO 4.8 (3.0-3.6); MAGNESIUM 1.7 MG/DL (1.3-2.1); PHOSPHORUS 3.2 MG/DL (2.3-4.7)
[2023-01-20] MEDS ORDERED: POTASSIUM CHLORIDE 20MEQ/100ML 100 ML IV ONE ×3 (07:00→15:15)
[2023-01-20 07:13] LABS: THYROID STIMULATING HORMONE 0.526 uIU/mL (0.350-4.940)
[2023-01-20] MEDS ORDERED: MAGNESIUM SULF 1GRAM/DEXTROSE 100 ML IV ONE ×3 (07:15→15:15)
[2023-01-20] MEDS ORDERED: KCL 40MEQ/0.9% SOD CHL 1,000 ML IV SCH (07:30)
[2023-01-20] MEDS: POTASSIUM CHL 40 MEQ in SODIUM CHLORIDE 0.9% 1000ML 1,000 ML IV SCH ×2 (07:30→14:30)
[2023-01-20] MEDS ORDERED: SODIUM CHLORIDE 0.9% 1000ML 1,000 ML ONE (10:45)
[2023-01-20] MEDS: FAMOTIDINE 20 MG TAB PO SCH ×2 (11:02→17:27)
[2023-01-20] MEDS ORDERED: POTASSIUM CHLORIDE 20 MEQ TAB CR PO ONE (11:30)
[2023-01-20] MEDS ORDERED: VILAZODONE HCL40 MG PO (14:24)
[2023-01-20] MEDS ORDERED: HYDROXYZINE HCL10 MG PO (14:24)
[2023-01-20] MEDS ORDERED: RINVOQ45 MG PO (14:28)
[2023-01-20 14:30] VITALS: BP 115/77
[2023-01-20] MEDS ORDERED: HYDROXYZINE HCL 10 MG TAB PO PRN (15:45)
[2023-01-20] MEDS ORDERED: TRAMADOL HCL 50 MG TAB PO PRN (15:45)
[2023-01-20 16:24] VITALS: BP 103/75
[2023-01-20] MEDS: DICYCLOMINE HCL 20 MG TAB PO SCH ×2 (17:27→21:57)
[2023-01-20 20:39] LABS: CALCIUM 7.8 mg/dL (8.4-10.2); CREATININE, SERUM 0.84 mg/dL (0.57-1.11)
[2023-01-20 20:40] VITALS: BP 120/85
[2023-01-20] MEDS: VILAZODONE HCL 40 MG PO SCH (21:00)
[2023-01-20] MEDS ORDERED: CYANOCOBALAMIN INJ 1,000 MCG/ML VIAL IM ONE (21:30)
[2023-01-20] MEDS: GABAPENTIN 300 MG CAP PO SCH (21:55)
[2023-01-20] MEDS: ATORVASTATIN 10 MG TAB PO SCH (21:55)
[2023-01-20] MEDS: PANTOPRAZOLE SOD 40 MG TABEC PO SCH (21:56)
[2023-01-20] MEDS: METOPROLOL TARTRATE 50 MG TAB PO SCH (21:56)
[2023-01-20] MEDS: RALOXIFENE HCL 60 MG TAB PO SCH (21:57)
[2023-01-20] MEDS: HYDRALAZINE HCL 25 MG TAB PO SCH (21:57)
[2023-01-21] MEDS ORDERED: POTASSIUM CHL 40 MEQ in SODIUM CHLORIDE 0.9% 1000ML 1,000 ML IV SCH (00:30)
[2023-01-21 00:47] VITALS: BP 115/80
[2023-01-21] MEDS: TRAMADOL HCL 50 MG TAB PO PRN ×2 (03:25→22:06)
[2023-01-21 05:31] VITALS: BP 124/87
[2023-01-21] MEDS: LEVOTHYROXINE SODIUM 125 MCG TAB PO SCH (06:10)
[2023-01-21] MEDS: METRONIDAZOLE 500MG/NS 100ML 100 ML IV SCH ×3 (06:10→21:24)
[2023-01-21] MEDS: SODIUM CHLORIDE 0.9% 1000ML 1,000 ML IV SCH ×2 (06:27→16:25)
[2023-01-21 07:26] LABS: BASOPHILS % 0.4 % (0.0-1.0); EOSINOPHILS # (AUTO) 0.4 (0.0-0.4); EOSINOPHILS % 6.6 % (0.0-6.0); HEMATOCRIT 27.7 % (34.2-44.1); HEMOGLOBIN 8.5 g/dL (12.0-16.0); LYMPHOCYTES # (AUTO) 1.4 (1.0-3.2); LYMPHOCYTES % 25.1 % (18.0-39.1); MEAN CORPUSCULAR HEMOGLOBIN 27.4 pg (28-32); MEAN CORPUSCULAR HGB CONC 30.7 g/dL (31-35); MEAN CORPUSCULAR VOLUME 89.4 fL (81-99); MONOCYTES # (AUTO) 0.4 (0.2-0.8); MONOCYTES % 7.3 % (4.4-11.3); NEUTROPHILS # (AUTO) 3.4 (2.1-6.9); NEUTROPHILS % 60.2 % (38.7-80.0); PLATELET COUNT 252 x10e3/uL (140-360); RED CELL DISTRIBUTION WIDTH 17.7 % (11.7-14.4)
[2023-01-21 07:52] LABS: ALBUMIN 2.6 g/dL (3.5-5.0); ALBUMIN/GLOBULIN RATIO 0.8 (0.8-2.0); ANION GAP 12.2 mmol/L (8-16); CALCIUM 7.4 mg/dL (8.4-10.2); CREATININE, SERUM 0.85 mg/dL (0.57-1.11); MAGNESIUM 1.8 MG/DL (1.3-2.1); POTASSIUM 3.2 mmol/L (3.5-5.1)
[2023-01-21 08:00] VITALS: BP 109/73
[2023-01-21] MEDS: CYANOCOBALAMIN INJ 1,000 MCG/ML VIAL IM SCH (09:35)
[2023-01-21] MEDS: FAMOTIDINE 20 MG TAB PO SCH ×2 (09:36→16:24)
[2023-01-21] MEDS: HYDRALAZINE HCL 25 MG TAB PO SCH ×3 (09:37→21:26)
[2023-01-21] MEDS: DICYCLOMINE HCL 20 MG TAB PO SCH ×4 (09:37→21:24)
[2023-01-21] MEDS: IRON-VITAMIN-MINERAL CAPSULE PO SCH (09:37)
[2023-01-21] MEDS: PANTOPRAZOLE SOD 40 MG TABEC PO SCH ×2 (09:37→21:24)
[2023-01-21] MEDS: METOPROLOL TARTRATE 50 MG TAB PO SCH ×2 (09:37→21:25)
[2023-01-21] MEDS ORDERED: POTASSIUM CHLORIDE 20 MEQ TAB CR PO ONE (10:00)
[2023-01-21] MEDS: POLYETHYLENE GLYCOL 3350 17 GM PACK PO SCH (13:17)
[2023-01-21 16:00] VITALS: BP 100/70
[2023-01-21 20:00] VITALS: BP 126/91
[2023-01-21] MEDS: VILAZODONE HCL 40 MG PO SCH (21:00)
[2023-01-21] MEDS: RALOXIFENE HCL 60 MG TAB PO SCH (21:24)
[2023-01-21] MEDS: ATORVASTATIN 10 MG TAB PO SCH (21:24)
[2023-01-21] MEDS: GABAPENTIN 300 MG CAP PO SCH (21:24)
[2023-01-22] VITALS (7 sets, daily range): BP systolic 106–135; BP diastolic 76–94
[2023-01-22] MEDS: SODIUM CHLORIDE 0.9% 1000ML 1,000 ML IV SCH (04:20)
[2023-01-22] MEDS: LEVOTHYROXINE SODIUM 125 MCG TAB PO SCH (05:57)
[2023-01-22] MEDS: METRONIDAZOLE 500MG/NS 100ML 100 ML IV SCH ×3 (05:57→22:57)
[2023-01-22 06:34] LABS: BASOPHILS % 0.4 % (0.0-1.0); EOSINOPHILS # (AUTO) 0.2 (0.0-0.4); EOSINOPHILS % 5.2 % (0.0-6.0); HEMATOCRIT 27.4 % (34.2-44.1); HEMOGLOBIN 8.6 g/dL (12.0-16.0); LYMPHOCYTES # (AUTO) 1.5 (1.0-3.2); MEAN CORPUSCULAR HEMOGLOBIN 28.6 pg (28-32); MEAN CORPUSCULAR HGB CONC 31.4 g/dL (31-35); MONOCYTES # (AUTO) 0.4 (0.2-0.8); MONOCYTES % 7.5 % (4.4-11.3); NEUTROPHILS # (AUTO) 2.5 (2.1-6.9); NEUTROPHILS % 54.7 % (38.7-80.0); PLATELET COUNT 253 x10e3/uL (140-360); RED BLOOD COUNT 3.01 x10e6/uL (3.6-5.1); RED CELL DISTRIBUTION WIDTH 17.9 % (11.7-14.4)
[2023-01-22 07:07] LABS: ANION GAP 9.4 mmol/L (8-16); CALCIUM 8.1 mg/dL (8.4-10.2); CREATININE, SERUM 0.82 mg/dL (0.57-1.11); POTASSIUM 3.4 mmol/L (3.5-5.1)
[2023-01-22 07:49] LABS: FERRITIN 21.12 ng/mL (4.63-204.00)
[2023-01-22] MEDS: WHEAT DEXTRIN 80 GM POWDER PO SCH (09:00)
[2023-01-22] MEDS: FAMOTIDINE 20 MG TAB PO SCH (09:08)
[2023-01-22] MEDS: CYANOCOBALAMIN INJ 1,000 MCG/ML VIAL IM SCH (09:08)
[2023-01-22] MEDS: DICYCLOMINE HCL 20 MG TAB PO SCH ×4 (09:09→20:34)
[2023-01-22] MEDS: HYDRALAZINE HCL 25 MG TAB PO SCH ×3 (09:09→20:35)
[2023-01-22] MEDS: METOPROLOL TARTRATE 50 MG TAB PO SCH ×2 (09:09→20:35)
[2023-01-22] MEDS: PANTOPRAZOLE SOD 40 MG TABEC PO SCH ×2 (09:09→20:35)
[2023-01-22] MEDS: IRON-VITAMIN-MINERAL CAPSULE PO SCH (09:09)
[2023-01-22] MEDS: POLYETHYLENE GLYCOL 3350 17 GM PACK PO SCH (09:10)
[2023-01-22] MEDS: TRAMADOL HCL 50 MG TAB PO PRN (12:29)
[2023-01-22] MEDS: CEPACOL SORE THROAT LOZENGES PO PRN (13:07)
[2023-01-22] MEDS ORDERED: POTASSIUM CHLORIDE 10MEQ EA PO ONE (13:30)
[2023-01-22] MEDS ORDERED: CITRATE OF MAGNESIA 300ML BOTTLE PO ONE (14:00)
[2023-01-22] MEDS: ATORVASTATIN 10 MG TAB PO SCH (20:34)
[2023-01-22] MEDS: GABAPENTIN 300 MG CAP PO SCH (20:34)
[2023-01-22] MEDS: RALOXIFENE HCL 60 MG TAB PO SCH (20:35)
[2023-01-22] MEDS: VILAZODONE HCL 40 MG PO SCH (20:37)
[2023-01-23] VITALS (8 sets, daily range): BP systolic 97–136; BP diastolic 65–89
[2023-01-23] MEDS: CEPACOL SORE THROAT LOZENGES PO PRN ×2 (02:43→14:21)
[2023-01-23] MEDS: TRAMADOL HCL 50 MG TAB PO PRN ×2 (02:44→23:43)
[2023-01-23] MEDS: METRONIDAZOLE 500MG/NS 100ML 100 ML IV SCH ×3 (05:41→20:54)
[2023-01-23] MEDS: LEVOTHYROXINE SODIUM 125 MCG TAB PO SCH (05:42)
[2023-01-23] MEDS: ACETAMINOPHEN 325 MG TAB PO PRN ×2 (05:48→14:24)
[2023-01-23 06:16] LABS: BASOPHILS % 0.4 % (0.0-1.0); EOSINOPHILS # (AUTO) 0.2 (0.0-0.4); EOSINOPHILS % 4.4 % (0.0-6.0); HEMOGLOBIN 8.9 g/dL (12.0-16.0); LYMPHOCYTES # (AUTO) 1.3 (1.0-3.2); LYMPHOCYTES % 24.5 % (18.0-39.1); MEAN CORPUSCULAR HGB CONC 31.8 g/dL (31-35); MEAN CORPUSCULAR VOLUME 88.1 fL (81-99); MONOCYTES # (AUTO) 0.5 (0.2-0.8); MONOCYTES % 8.7 % (4.4-11.3); NEUTROPHILS # (AUTO) 3.2 (2.1-6.9); NEUTROPHILS % 61.4 % (38.7-80.0); PLATELET COUNT 270 x10e3/uL (140-360); RED BLOOD COUNT 3.18 x10e6/uL (3.6-5.1)
[2023-01-23 06:58] LABS: ANION GAP 12.3 mmol/L (8-16); CALCIUM 8.1 mg/dL (8.4-10.2); CREATININE, SERUM 0.85 mg/dL (0.57-1.11); POTASSIUM 3.3 mmol/L (3.5-5.1)
[2023-01-23] MEDS ORDERED: CITRATE OF MAGNESIA 300ML BOTTLE PO ONE (07:00)
[2023-01-23] MEDS: POLYETHYLENE GLYCOL 3350 17 GM PACK PO SCH (08:29)
[2023-01-23] MEDS: WHEAT DEXTRIN 80 GM POWDER PO SCH (08:29)
[2023-01-23] MEDS: IRON-VITAMIN-MINERAL CAPSULE PO SCH (08:30)
[2023-01-23] MEDS: PANTOPRAZOLE SOD 40 MG TABEC PO SCH ×2 (08:30→20:54)
[2023-01-23] MEDS: CYANOCOBALAMIN INJ 1,000 MCG/ML VIAL IM SCH (08:30)
[2023-01-23] MEDS: DICYCLOMINE HCL 20 MG TAB PO SCH ×4 (08:31→20:54)
[2023-01-23] MEDS: HYDRALAZINE HCL 25 MG TAB PO SCH ×3 (08:31→20:53)
[2023-01-23] MEDS: METOPROLOL TARTRATE 50 MG TAB PO SCH ×2 (08:31→20:52)
[2023-01-23] MEDS ORDERED: ONDANSETRON HCL 4 MG ORAL DISINTEGRATING TAB PO PRN (15:30)
[2023-01-23] MEDS ORDERED: POTASSIUM CHLORIDE 20 MEQ TAB CR PO ONE (16:30)
[2023-01-23] MEDS: GABAPENTIN 300 MG CAP PO SCH (20:51)
[2023-01-23] MEDS: RALOXIFENE HCL 60 MG TAB PO SCH (20:51)
[2023-01-23] MEDS: ATORVASTATIN 10 MG TAB PO SCH (20:54)
[2023-01-23] MEDS: VILAZODONE HCL 40 MG PO SCH (20:55)
[2023-01-24] VITALS (8 sets, daily range): BP systolic 104–136; BP diastolic 69–95
[2023-01-24] MEDS: METRONIDAZOLE 500MG/NS 100ML 100 ML IV SCH ×3 (05:33→22:13)
[2023-01-24] MEDS: TRAMADOL HCL 50 MG TAB PO PRN (05:34)
[2023-01-24] MEDS: LEVOTHYROXINE SODIUM 125 MCG TAB PO SCH (05:34)
[2023-01-24] MEDS: POLYETHYLENE GLYCOL 3350 17 GM PACK PO SCH (09:00)
[2023-01-24] MEDS: WHEAT DEXTRIN 80 GM POWDER PO SCH (09:00)
[2023-01-24 09:22] LABS: ANION GAP 13.7 mmol/L (8-16); BLOOD UREA NITROGEN < 5 mg/dL (7-26); CALCIUM 8.3 mg/dL (8.4-10.2); CARBON DIOXIDE 20 mmol/L (22-29); CHLORIDE 104 mmol/L (98-107); GLUCOSE 139 mg/dL (74-118); POTASSIUM 3.7 mmol/L (3.5-5.1); SODIUM 134 mmol/L (136-145)
[2023-01-24 09:30] LABS: BUN/CREATININE RATIO 6 (6-25)
[2023-01-24 09:42] LABS: MAGNESIUM 1.8 MG/DL (1.3-2.1); PHOSPHORUS 2.2 MG/DL (2.3-4.7)
[2023-01-24] MEDS: ACETAMINOPHEN 325 MG TAB PO PRN ×3 (10:22→21:42)
[2023-01-24] MEDS: IRON-VITAMIN-MINERAL CAPSULE PO SCH (10:22)
[2023-01-24] MEDS: DICYCLOMINE HCL 20 MG TAB PO SCH ×4 (10:22→21:40)
[2023-01-24] MEDS: HYDRALAZINE HCL 25 MG TAB PO SCH ×3 (10:22→21:00)
[2023-01-24] MEDS: CYANOCOBALAMIN INJ 1,000 MCG/ML VIAL IM SCH (10:23)
[2023-01-24] MEDS: METOPROLOL TARTRATE 50 MG TAB PO SCH ×2 (10:23→21:41)
[2023-01-24] MEDS: PANTOPRAZOLE SOD 40 MG TABEC PO SCH ×2 (10:23→21:40)
[2023-01-24 10:35] LABS: BASOPHILS % 0.2 % (0.0-1.0); EOSINOPHILS # (AUTO) 0.2 (0.0-0.4); EOSINOPHILS % 2.5 % (0.0-6.0); HEMATOCRIT 30.8 % (34.2-44.1); HEMOGLOBIN 9.7 g/dL (12.0-16.0); LYMPHOCYTES # (AUTO) 1.3 (1.0-3.2); LYMPHOCYTES % 15.8 % (18.0-39.1); MEAN CORPUSCULAR HEMOGLOBIN 27.6 pg (28-32); MEAN CORPUSCULAR HGB CONC 31.5 g/dL (31-35); MEAN CORPUSCULAR VOLUME 87.7 fL (81-99); MONOCYTES # (AUTO) 0.5 (0.2-0.8); MONOCYTES % 6.7 % (4.4-11.3); NEUTROPHILS % 74.4 % (38.7-80.0); PLATELET COUNT 266 x10e3/uL (140-360); RED BLOOD COUNT 3.51 x10e6/uL (3.6-5.1); RED CELL DISTRIBUTION WIDTH 18.5 % (11.7-14.4)
[2023-01-24] MEDS ORDERED: ALPRAZOLAM 0.5 MG TAB PO ONE (11:30)
[2023-01-24] MEDS: DICYCLOMINE HCL 10 MG CAP PO PRN (13:16)
[2023-01-24] MEDS: VILAZODONE HCL 40 MG PO SCH (21:00)
[2023-01-24] MEDS: GABAPENTIN 300 MG CAP PO SCH (21:40)
[2023-01-24] MEDS: ATORVASTATIN 10 MG TAB PO SCH (21:40)
[2023-01-24] MEDS: RALOXIFENE HCL 60 MG TAB PO SCH (22:13)
[2023-01-25] VITALS (8 sets, daily range): BP systolic 95–127; BP diastolic 61–91
[2023-01-25] MEDS: METRONIDAZOLE 500MG/NS 100ML 100 ML IV SCH ×3 (05:35→20:59)
[2023-01-25] MEDS: LEVOTHYROXINE SODIUM 125 MCG TAB PO SCH (05:36)
[2023-01-25] MEDS: ACETAMINOPHEN 325 MG TAB PO PRN ×2 (05:36→20:55)
[2023-01-25] MEDS: CYANOCOBALAMIN INJ 1,000 MCG/ML VIAL IM SCH (08:43)
[2023-01-25] MEDS: IRON-VITAMIN-MINERAL CAPSULE PO SCH (08:44)
[2023-01-25] MEDS: DICYCLOMINE HCL 20 MG TAB PO SCH ×4 (08:44→20:54)
[2023-01-25] MEDS: WHEAT DEXTRIN 80 GM POWDER PO SCH (08:44)
[2023-01-25] MEDS: HYDRALAZINE HCL 25 MG TAB PO SCH ×3 (08:44→21:00)
[2023-01-25] MEDS: PANTOPRAZOLE SOD 40 MG TABEC PO SCH ×2 (08:45→20:54)
[2023-01-25] MEDS: METOPROLOL TARTRATE 50 MG TAB PO SCH ×2 (08:45→21:00)
[2023-01-25] MEDS: POLYETHYLENE GLYCOL 3350 17 GM PACK PO SCH (08:45)
[2023-01-25 11:11] LABS: ALBUMIN 2.9 g/dL (3.5-5.0); ALBUMIN/GLOBULIN RATIO 0.8 (0.8-2.0); ANION GAP 13.1 mmol/L (8-16); CALCIUM 8.1 mg/dL (8.4-10.2); CREATININE, SERUM 0.9 mg/dL (0.57-1.11); POTASSIUM 3.1 mmol/L (3.5-5.1)
[2023-01-25] MEDS: TRAMADOL HCL 50 MG TAB PO PRN (13:25)
[2023-01-25] MEDS: CEPACOL SORE THROAT LOZENGES PO PRN (13:26)
[2023-01-25] MEDS ORDERED: POTASSIUM CHLORIDE 20 MEQ TAB CR PO ONE (14:00)
[2023-01-25] MEDS: GABAPENTIN 300 MG CAP PO SCH (20:54)
[2023-01-25] MEDS: RALOXIFENE HCL 60 MG TAB PO SCH (20:54)
[2023-01-25] MEDS: ATORVASTATIN 10 MG TAB PO SCH (20:54)
[2023-01-25] MEDS: VILAZODONE HCL 40 MG PO SCH (21:00)
[2023-01-26] VITALS (8 sets, daily range): BP systolic 95–127; BP diastolic 61–89
[2023-01-26] MEDS: ENOXAPARIN SODIUM INJ 100 MG/ML SYR SC SCH ×3 (00:52→20:52)
[2023-01-26] MEDS: METRONIDAZOLE 500MG/NS 100ML 100 ML IV SCH ×2 (05:02→14:00)
[2023-01-26] MEDS: LEVOTHYROXINE SODIUM 125 MCG TAB PO SCH (05:03)
[2023-01-26] MEDS: WHEAT DEXTRIN 80 GM POWDER PO SCH (09:00)
[2023-01-26] MEDS: POLYETHYLENE GLYCOL 3350 17 GM PACK PO SCH (09:00)
[2023-01-26] MEDS: HYDRALAZINE HCL 25 MG TAB PO SCH ×3 (09:18→20:50)
[2023-01-26] MEDS: PANTOPRAZOLE SOD 40 MG TABEC PO SCH ×2 (09:18→20:51)
[2023-01-26] MEDS: DICYCLOMINE HCL 20 MG TAB PO SCH ×4 (09:18→20:51)
[2023-01-26] MEDS: METOPROLOL TARTRATE 50 MG TAB PO SCH ×2 (09:19→20:52)
[2023-01-26] MEDS: IRON-VITAMIN-MINERAL CAPSULE PO SCH (09:19)
[2023-01-26] MEDS: CYANOCOBALAMIN INJ 1,000 MCG/ML VIAL IM SCH (09:19)
[2023-01-26] MEDS: CEPACOL SORE THROAT LOZENGES PO PRN (11:33)
[2023-01-26] MEDS: TRAMADOL HCL 50 MG TAB PO PRN (17:59)
[2023-01-26] MEDS: ATORVASTATIN 10 MG TAB PO SCH (20:50)
[2023-01-26] MEDS: RALOXIFENE HCL 60 MG TAB PO SCH (20:51)
[2023-01-26] MEDS: CEPHALEXIN 500 MG CAP PO SCH (20:51)
[2023-01-26] MEDS: GABAPENTIN 300 MG CAP PO SCH (20:51)
[2023-01-26] MEDS: ACETAMINOPHEN 325 MG TAB PO PRN (20:54)
[2023-01-26] MEDS: VILAZODONE HCL 40 MG PO SCH (21:00)
[2023-01-27] VITALS: BP 102/74
[2023-01-27] MEDS: TRAMADOL HCL 50 MG TAB PO PRN (00:14)
[2023-01-27 04:00] VITALS: BP 102/12
[2023-01-27] MEDS: LEVOTHYROXINE SODIUM 125 MCG TAB PO SCH (05:04)
[2023-01-27 06:44] LABS: BASOPHILS % 0.2 % (0.0-1.0); EOSINOPHILS # (AUTO) 0.3 (0.0-0.4); HEMATOCRIT 28.5 % (34.2-44.1); LYMPHOCYTES # (AUTO) 1.9 (1.0-3.2); LYMPHOCYTES % 28.2 % (18.0-39.1); MEAN CORPUSCULAR HGB CONC 31.6 g/dL (31-35); MEAN CORPUSCULAR VOLUME 88.8 fL (81-99); MONOCYTES # (AUTO) 0.6 (0.2-0.8); MONOCYTES % 9.5 % (4.4-11.3); NEUTROPHILS # (AUTO) 3.7 (2.1-6.9); NEUTROPHILS % 56.3 % (38.7-80.0); PLATELET COUNT 256 x10e3/uL (140-360); RED BLOOD COUNT 3.21 x10e6/uL (3.6-5.1); RED CELL DISTRIBUTION WIDTH 18.8 % (11.7-14.4)
[2023-01-27 07:09] LABS: ANION GAP 13.5 mmol/L (8-16); CALCIUM 8.4 mg/dL (8.4-10.2); CREATININE, SERUM 0.79 mg/dL (0.57-1.11); POTASSIUM 3.5 mmol/L (3.5-5.1)
[2023-01-27 08:34] VITALS: BP 113/82
[2023-01-27 09:00] VITALS: BP 113/82
[2023-01-27] MEDS: POLYETHYLENE GLYCOL 3350 17 GM PACK PO SCH (09:00)
[2023-01-27] MEDS: WHEAT DEXTRIN 80 GM POWDER PO SCH (09:00)
[2023-01-27] MEDS: HYDRALAZINE HCL 25 MG TAB PO SCH ×2 (09:04→15:39)
[2023-01-27] MEDS: DICYCLOMINE HCL 20 MG TAB PO SCH ×3 (09:04→17:54)
[2023-01-27] MEDS: PANTOPRAZOLE SOD 40 MG TABEC PO SCH (09:04)
[2023-01-27] MEDS: CYANOCOBALAMIN INJ 1,000 MCG/ML VIAL IM SCH (09:04)
[2023-01-27] MEDS: CEPHALEXIN 500 MG CAP PO SCH (09:04)
[2023-01-27] MEDS: METOPROLOL TARTRATE 50 MG TAB PO SCH (09:05)
[2023-01-27] MEDS: ENOXAPARIN SODIUM INJ 100 MG/ML SYR SC SCH (09:05)
[2023-01-27] MEDS: IRON-VITAMIN-MINERAL CAPSULE PO SCH (09:06)
[2023-01-27 12:54] VITALS: BP 133/90
[2023-01-27] MEDS ORDERED: ELIQUIS5 MG PO (13:43)
[2023-01-27] MEDS ORDERED: CEPHALEXIN500 M1 PO (13:57)
[2023-01-27] MEDS ORDERED: FLUCONAZOLE 100 MG TAB PO ONE (15:00)
[2023-01-27 16:00] VITALS: BP 134/89
[2023-01-27] MEDS ORDERED: APIXABAN 5 MG TABLET PO SCH (17:00)
[2023-01-27] MEDS: ACETAMINOPHEN 325 MG TAB PO PRN (19:11)
[2023-02-03] MEDS ORDERED: APIXABAN 5 MG TABLET PO SCH (17:00)
== END 2023-01-27 20:42 | disposition home or self-care (01) | DRG 872 ==
LOC: ER 12:01 → ERHOLD 18:40 → MED/SURG3 01-20 14:00
PROVIDERS: ADMIT Internal Medicine; ATTEND Internal Medicine
PROC: 3E04329 Introduction of Other Anti-infective into Central Vein, Percutaneous Approach (ICD-10-PCS; principal; 2023-01-19)
PROC: 02HV33Z Insertion of Infusion Device into Superior Vena Cava, Percutaneous Approach (ICD-10-PCS; 2023-01-20)
DX: A41.9 Sepsis, unspecified organism (principal); N39.0 Urinary tract infection, site not specified; I82.621 Acute embolism and thrombosis of deep veins of right upper extremity; E87.20 Acidosis, unspecified; Z68.41 Body mass index [BMI] 40.0-44.9, adult; G47.33 Obstructive sleep apnea (adult) (pediatric); F32.A Depression, unspecified; E03.9 Hypothyroidism, unspecified; Z85.3 Personal history of malignant neoplasm of breast; K57.90 Diverticulosis of intestine, part unspecified, without perforation or abscess without bleeding; B96.20 Unspecified Escherichia coli [E. coli] as the cause of diseases classified elsewhere; E87.6 Hypokalemia; D64.9 Anemia, unspecified; A41.51 Sepsis due to Escherichia coli [E. coli]; Z79.4 Long term (current) use of insulin; E66.01 Morbid (severe) obesity due to excess calories; E86.0 Dehydration; K21.9 Gastro-esophageal reflux disease without esophagitis; Z88.6 Allergy status to analgesic agent; Z88.2 Allergy status to sulfonamides; Z88.8 Allergy status to other drugs, medicaments and biological substances; R19.7 Diarrhea, unspecified; E83.42 Hypomagnesemia; Z90.49 Acquired absence of other specified parts of digestive tract; R65.20 Severe sepsis without septic shock
CPT/HCPCS: 0223U; 36415; 36569; 71045; 74176; 80048; 80053; 80061; 81001; 82607; 82728; 82746; 82747; 82948; 83036; 83518; 83540; 83605; 83630; 83690; 83735; 84100; 84443; 84466; 84484; 85025; 85045; 87040; 87045; 87070; 87086; 87177; 87186; 87324; 87328; 87400; 87449; 93005; 93971; 94799; 99284; J0696; J1650; J2405; J3420; J3475; J3480; J7030; Q0162; Q9967

== ENCOUNTER → 2023-03-20 | Day surgery (SDC) | payer BC ==
[2023-03-17 14:36] LABS: BASOPHILS % 0.2 % (0.0-1.0); EOSINOPHILS # (AUTO) 0.2 (0.0-0.4); EOSINOPHILS % 2.2 % (0.0-6.0); HEMATOCRIT 32.1 % (34.2-44.1); HEMOGLOBIN 10.3 g/dL (12.0-16.0); LYMPHOCYTES # (AUTO) 2.9 (1.0-3.2); MEAN CORPUSCULAR HEMOGLOBIN 28.4 pg (28-32); MEAN CORPUSCULAR HGB CONC 32.1 g/dL (31-35); MEAN CORPUSCULAR VOLUME 88.4 fL (81-99); MONOCYTES # (AUTO) 0.6 (0.2-0.8); MONOCYTES % 6.3 % (4.4-11.3); NEUTROPHILS # (AUTO) 5.2 (2.1-6.9); NEUTROPHILS % 58.6 % (38.7-80.0); PLATELET COUNT 391 x10e3/uL (140-360); RED BLOOD COUNT 3.63 x10e6/uL (3.6-5.1); RED CELL DISTRIBUTION WIDTH 17.5 % (11.7-14.4)
[~2023-03-20] MED LIST changes: +CEPHALEXIN500 M1 PO; +GLYCOPYRROLATE INJ 0.2 MG/ML VIAL ONE; +HYDROXYZINE HCL10 MG PO; +LIDOCAINE HCL 2% LOCAL INJ 5 ML SDV VIAL INJ ONE; +METOCLOPRAMIDE HCL 10 MG/2ML VIAL ONE; +POVIDONE IODINE 0.05% 0.05 % ML PO ONE; +PROPOFOL IV EMULSION 10 MG/ML 20 ML VIAL ONE; +RINVOQ45 MG PO; +VILAZODONE HCL40 MG PO
[2023-03-20 16:50] VITALS: BP 125/83; PULSE 90; RESP 16; O2SAT 98
== END | disposition home or self-care (01) ==
LOC: OR 14:15
PROVIDERS: ATTEND Internal Medicine Gastroenterology
DX: Z09 Encounter for follow-up examination after completed treatment for conditions other than malignant neoplasm (principal); K31.7 Polyp of stomach and duodenum; K31.89 Other diseases of stomach and duodenum; K21.9 Gastro-esophageal reflux disease without esophagitis; G47.33 Obstructive sleep apnea (adult) (pediatric); I10 Essential (primary) hypertension; E78.5 Hyperlipidemia, unspecified; E11.9 Type 2 diabetes mellitus without complications; F32.A Depression, unspecified; Z88.1 Allergy status to other antibiotic agents; Z88.2 Allergy status to sulfonamides; Z88.8 Allergy status to other drugs, medicaments and biological substances; Z01.810 Encounter for preprocedural cardiovascular examination; Z01.812 Encounter for preprocedural laboratory examination; Z79.82 Long term (current) use of aspirin; Z79.4 Long term (current) use of insulin; Z79.85 Long-term (current) use of injectable non-insulin antidiabetic drugs; Z79.02 Long term (current) use of antithrombotics/antiplatelets; Z79.899 Other long term (current) drug therapy; Z86.711 Personal history of pulmonary embolism; Z87.891 Personal history of nicotine dependence
CPT/HCPCS: 36415 ×2; 43235; 82948; 85025; 93005; J2001; J2704; J2765; 43239